=== PATIENT | female | born 1935 | race Caucasian/White ===

== ENCOUNTER → 2020-04-08 09:08 | Outpatient (CLI) | payer MEDICARE, SELFPAY ==
[2020-04-08 11:36] LABS: Coronavirus 19 IgG Antibody Negative (Negative); Coronavirus 19 IgM Antibody Negative (Negative)
== END ==
PROVIDERS: Visit Provider Ophthalmology
DX: Z03.818 Encounter for observation for suspected exposure to other biological agents ruled out (principal)
CPT/HCPCS: 36415; 86328

== ENCOUNTER 2020-04-09 06:53 | Day surgery (SDC) | payer MEDICARE, SELFPAY ==
--- NOTE | 2020-04-03 10:39 | SUR.PREOP ---
04/03/2020 @ 3737--PHONE CALL MADE TO PATIENT. PATIENT UNDERSTANDS THAT LAB WORK AND COVID TESTING NEEDS TO BE COMPLETED @ 0900 ON 04/08/2020. PATIENT UNDERSTANDS IF LAB WORK AND COVID-19 TESTS ARE NOT COMPLETED BY 12PM ON THAT DATE, THE SURGERY SCHEDULED WILL BE CANCELLED AND RESCHEDULED FOR ANOTHER TIME.
[2020-04-04 13:22] VITALS: BMI 25.9
[2020-04-09 07:18] VITALS: BP 119/97; PULSE 75; RESP 18; TEMP 36.8; O2SAT 96
[2020-04-09 08:08] VITALS: BP 184/82; PULSE 68; RESP 18; O2SAT 98
[2020-04-09 08:13] VITALS: BP 183/79; PULSE 69; RESP 18; O2SAT 100
[2020-04-09 08:18] VITALS: BP 182/81; PULSE 68; RESP 20; O2SAT 100
[2020-04-09 08:23] VITALS: BP 181/73; PULSE 68; RESP 20; O2SAT 100
[2020-04-09 08:42] VITALS: BP 164/80; PULSE 68; RESP 18; TEMP 36.1; O2SAT 96
== END 2020-04-09 08:42 | disposition home or self-care (01) ==
LOC: OR 06:55
PROVIDERS: PCP Family Medicine; Visit Provider Ophthalmology
DX: H26.9 Unspecified cataract (principal); M19.90 Unspecified osteoarthritis, unspecified site; F32.9 Major depressive disorder, single episode, unspecified; I10 Essential (primary) hypertension; R00.2 Palpitations; E78.00 Pure hypercholesterolemia, unspecified; Z80.9 Family history of malignant neoplasm, unspecified; Z83.518 Family history of other specified eye disorder; Z82.49 Family history of ischemic heart disease and other diseases of the circulatory system; Z85.828 Personal history of other malignant neoplasm of skin; Z90.710 Acquired absence of both cervix and uterus; Z79.899 Other long term (current) drug therapy
CPT/HCPCS: 66984; V2632